=== PATIENT | female | born 1955 | race Caucasian/White ===

== ENCOUNTER 2018-07-15 05:28 | Observation (INO) | payer OTHER ==
[2018-07-15] MEDS ORDERED: HYOSCYAMINE SULFATE 0.125 MG TAB PO ONE (05:51)
[2018-07-15] MEDS ORDERED: MAG HYDROX/AL HYDROX/SIMETH 30 ML UDCUP PO ONE (05:51)
[2018-07-15] MEDS ORDERED: LIDOCAINE 2% VISCOUS 15 ML UDCUP PO ONE (05:51)
[2018-07-15] MEDS ORDERED: ONDANSETRON 4 MG/2 ML VIAL ONE ×2 (06:00→11:47)
[2018-07-15] MEDS ORDERED: ONDANSETRON 4 MG/2 ML VIAL IVP ONE (06:00)
[2018-07-15 06:01] LABS: PLATELET COUNT 258 10^3/uL (150-400)
--- NOTE | 2018-07-15 06:26 | EDPHY ---
H & P Stated Complaint: Chest pain since last night, unrelieved by zantac Source: Patient Exam Limitations: No limitations - Personal History Current Tetanus Diphtheria and Acellular Pertussis (TDAP): Yes - Medical/Surgical History Hx Asthma: No Hx Chronic Respiratory Disease: No Hx Diabetes: No Hx Cardiac Disease: No Hx Renal Disease: No Hx Cirrhosis: No Hx Alcoholism: No Hx HIV/AIDS: No Hx Splenectomy or Spleen Trauma: No Other PMH: Hypothyroid, - Social History Smoking Status: Never smoked Time Seen by Provider: 07/15/18 05:51 HPI/ROS: HPI The patient presents with chest pain which began at about 8:00 p.m. Last night and has been constant ever since. The patient describes an epigastric pressure sensation which does not radiate and is associated with nausea and vomiting. She is visiting here from [place]. Earlier in the day she had developed several episodes of watery diarrhea. She had an episode at night after drinking some wine. She was able to drink some [place] water, however her pain continued and has been present ever since. She took an extra dose of her Zantac which she usually takes twice a day for GERD. She has 1 similar previous episode about 1 year ago at [facility]. REVIEW OF SYSTEMS 10 systems were reviewed and negative with the exception of the elements mentioned in the history of present illness. PMHx: History of GERD, no prior cardiac history Soc Hx: Nonsmoker FHx: No early CAD in parents PHYSICAL General Appearance: Alert, no distress Eyes: Pupils equal and round no pallor or injection ENT, Mouth: Mucous membranes moist Respiratory: There are no retractions, lungs are clear to auscultation Cardiovascular: Regular rate and rhythm Gastrointestinal: Abdomen is soft and tender in the epigastrium, no masses, bowel sounds normal Neurological: A&O, moves all extremities Skin: Warm and dry, no rashes Musculoskeletal: Neck is supple non tender Extremities: symmetrical, full range of motion Psychiatric: Patient is oriented X 3, there is no agitation (RiguzziJessica) Constitutional: Initial Vital Signs Temperature (C) 36.8 C 07/15/18 05:34 Heart Rate 71 07/15/18 05:34 Respiratory Rate 16 07/15/18 05:34 Blood Pressure 159/84 H 07/15/18 05:34 O2 Sat (%) 97 07/15/18 05:34 O2 Delivery Mode Room Air Allergies/Adverse Reactions: No Known Allergies Allergy (Verified 07/15/18 09:01) Home Medications: Medication Instructions Recorded Acetaminophen [Tylenol 325mg (*)] 325 mg PO DAILY PRN 07/15/18 Azithromycin [Azasite] 1 drop LEFTEYE HS 07/15/18 Glucosamine/Chondroitin 2 each PO DAILY 07/15/18 [Glucosamine/Chondroitin (*)] Levothyroxine [Synthroid 100 mcg 100 mcg PO MO@07/15/18 (*)] Levothyroxine [Synthroid 50 mcg 50 mcg PO SUTUWETHFRSA@07/15/18 (*)] Multivitamins [Multivitamin (*)] 1 each PO DAILY 07/15/18 Ranitidine HCl [Zantac] 150 mg PO BID 07/15/18 Medical Decision Making - Diagnostics Imaging: I viewed and interpreted images myself - Diagnostics EKG Interpretation: EKG: Complete interpretation has been separately recorded in the [employer] archive. Summary impression: T-wave inversions in V1 through V3 (Jessica Gonzalez) Imaging Results: Imaging Impressions Chest X-Ray 07/15/18 05:51 IMPRESSION: No evidence for acute cardiopulmonary abnormality. Abdomen Ultrasound 07/15/18 06:50 Impression: Cholelithiasis without evidence for cholecystitis. Distal common bile duct is mildly enlarged at the pancreatic head with no definite choledochal stone. No evidence for intrahepatic biliary ductal dilatation. Results called and discussed with Dr. Emma Marinelli on 07/15/2018 at 0815 hours. Chest x-ray single view is unremarkable, interpreted by me, radiology interpretation is pending. (Jessica Gonzalez) ED Course/Re-evaluation: 7:00 a.m.-I assumed care of this patient at shift change. She presents with epigastric pain and elevated LFTs. Right upper quadrant ultrasound is pending. 8:30 a.m.-ultrasound reveals multiple gallstones, without evidence of cholecystitis or common bile duct obstruction. Results discussed with the patient. She continues to have epigastric pain. Abd: soft, epigastric tenderness, no peritoneal signs. Concern for biliary duct stone, given elevated LFT's and persistent pain. Lipase normal. Dr. Gonzalez was consulted, saw the pt in the ED with plan for cholecystectomy today. (Emma Marinelil) Differential Diagnosis: 62-year-old female with known history of GERD, visiting from [place], presents with about 10 hr of pressure-like sensation in her epigastrium is associated with nausea and vomiting as well as diarrhea earlier in the day. Differential diagnosis includes GERD, ACS, gastroenteritis. Patient was given Zofran and a GI cocktail here. His troponin was 0. HEART score calculated at 3. Other labs returned and demonstrated an elevated bilirubin and transaminitis. This raises suspicion for biliary disease. I have ordered a right upper quadrant ultrasound. I have ordered additional pain medication. The case will be signed out to the oncoming provider Dr. Marinelli. (Bj Gonzalezine) - Data Points Laboratory Results: Laboratory Results 07/15/18 05:43 07/15/18 05:43 07/15/18 07/15/18 07/15/18 05:53 05:43 05:43 WBC RBC Hgb Hct MCV MCH MCHC RDW Plt Count MPV Neut % (Auto) Lymph % (Auto) [place] % (Auto) Eos % (Auto) Baso % (Auto) Nucleat RBC Rel Count Absolute Neuts (auto) Absolute Lymphs (auto) Absolute Monos (auto) Absolute Eos (auto) Absolute Basos (auto) Absolute Nucleated RBC Immature Gran % Immature Gran # Sodium Potassium Chloride Carbon Dioxide Anion Gap BUN Creatinine Estimated GFR Glucose Calcium Total Bilirubin 2.5 mg/dL H mg/dL (0.1-1.4) Conjugated Bilirubin 1.6 mg/dL H mg/dL (0.0-0.5) Unconjugated Bilirubin 0.9 mg/dL mg/dL (0.0-1.1) AST 718 IU/L H IU/L (14-46) ALT 442 IU/L H IU/L (9-52) Alkaline Phosphatase 172 IU/L H IU/L (38-126) POC Troponin I 0.00 ng/mL ng/mL (0.00-0.08) Total Protein 8.0 g/dL g/dL (6.3-8.2) Albumin 4.8 g/dL g/dL (3.5-5.0) Lipase 159 IU/L IU/L (23-300) 07/15/18 07/15/18 05:43 05:43 WBC 7.75 10^3/uL 10^3/uL (3.80-9.50) RBC 5.04 10^6/uL 10^6/uL (4.18-5.33) Hgb 15.3 g/dL g/dL (12.6-16.3) Hct 45.6 % % (38.0-47.0) MCV 90.5 fL fL (81.5-99.8) MCH 30.4 pg pg (27.9-34.1) MCHC 33.6 g/dL g/dL (32.4-36.7) RDW 13.1 % % (11.5-15.2) Plt Count 258 10^3/uL 10^3/uL (150-400) MPV 9.6 fL fL (8.7-11.7) Neut % (Auto) 73.2 % % (39.3-74.2) Lymph % (Auto) 18.7 % % (15.0-45.0) [place] % (Auto) 6.5 % % (4.5-13.0) Eos % (Auto) 1.0 % % (0.6-7.6) Baso % (Auto) 0.5 % % (0.3-1.7) Nucleat RBC Rel Count 0.0 % % (0.0-0.2) Absolute Neuts (auto) 5.67 10^3/uL 10^3/uL (1.70-6.50) Absolute Lymphs (auto) 1.45 10^3/uL 10^3/uL (1.00-3.00) Absolute Monos (auto) 0.50 10^3/uL 10^3/uL (0.30-0.80) Absolute Eos (auto) 0.08 10^3/uL 10^3/uL (0.03-0.40) Absolute Basos (auto) 0.04 10^3/uL 10^3/uL (0.02-0.10) Absolute Nucleated RBC 0.00 10^3/uL 10^3/uL (0-0.01) Immature Gran % 0.1 % % (0.0-1.1) Immature Gran # 0.01 10^3/uL 10^3/uL (0.00-0.10) Sodium 138 mEq/L mEq/L (135-145) Potassium 3.8 mEq/L mEq/L (3.5-5.2) Chloride 104 mEq/L mEq/L (97-110) Carbon Dioxide 23 mEq/l mEq/l (22-31) Anion Gap 11 mEq/L mEq/L (6-14) BUN 14 mg/dL mg/dL (7-23) Creatinine 0.8 mg/dL mg/dL (0.6-1.0) Estimated GFR > 60 Glucose 129 mg/dL H mg/dL (70-100) Calcium 10.0 mg/dL mg/dL (8.5-10.4) Total Bilirubin Conjugated Bilirubin Unconjugated Bilirubin AST ALT Alkaline Phosphatase POC Troponin I Total Protein Albumin Lipase Medications Given: Discontinued Medications Al Hydroxide/Mg Hydroxide (Maalox Susp) 30 ml PO ONCE ONE Stop: 07/15/18 05:52 Last Admin: 07/15/18 05:55 Dose: 30 ml Famotidine (Pepcid) 20 mg IVP EDNOW ONE Stop: 07/15/18 06:57 Last Admin: 07/15/18 07:00 Dose: 20 mg Hyoscyamine Sulfate (Levsin, Hyomax-Sl) 0.25 mg PO ONCE ONE Stop: 07/15/18 05:52 Last Admin: 07/15/18 05:56 Dose: 0.25 mg Sodium Chloride (Ns) 1,000 mls @ 0 mls/hr IV EDNOW ONE; Wide Open PRN Reason: Protocol Stop: 07/15/18 06:57 Last Admin: 07/15/18 07:00 Dose: 1,000 mls Lidocaine (Lidocaine 2% Viscous) 15 ml PO ONCE ONE Stop: 07/15/18 05:52 Last Admin: 07/15/18 05:55 Dose: 15 ml Morphine Sulfate (Morphine) 4 mg IVP EDNOW ONE Stop: 07/15/18 08:44 Last Admin: 07/15/18 09:27 Dose: 4 mg Ondansetron HCl (Zofran) 4 mg IVP EDNOW ONE Stop: 07/15/18 06:01 Last Admin: 07/15/18 06:01 Dose: 4 mg Point of Care Test Results: Chemistry 07/15/18 05:53 POC Troponin I 0.00 ng/mL ng/mL (0.00-0.08) Departure - Departure Disposition: [facility] Acute Clinical Impression: Biliary colic Cholelithiasis Qualifiers: Cholelithiasis location: gallbladder Cholecystitis presence: without cholecystitis Biliary obstruction: without biliary obstruction Qualified Code(s) : K80.20 - Calculus of gallbladder without cholecystitis without obstruction Condition: Fair
[2018-07-15] MEDS ORDERED: FAMOTIDINE 20 MG/2 ML SDV IVP ONE (06:56)
[2018-07-15] MEDS ORDERED: NS 1,000 ML IV ONE (06:56)
--- NOTE | 2018-07-15 09:28 | PDGENHP ---
History and Physical - Chief Complaint Epigastric pain - History of Present Illness 62-year-old female in town from [place] presents with acute onset epigastric pain. Patient states that she started feeling unwell yesterday and had a bout of diarrhea. She subsequently went on with her day and began to have increasing epigastric pain last night. She has a history of GERD and subsequently took multiple is intact with no relief. The pain progressed which prompted her presentation here. She endorses nausea and vomiting. She currently endorses a bandlike pain around her epigastrium right greater than left. No fevers or chills. She did have an episode similar to this a few years ago which resolved with time. She has never been worked up for any biliary problems in the past. History Information - Allergies/Home Medication List Allergies/Adverse Reactions: No Known Allergies Allergy (Verified 07/15/18 09:01) Home Medications: Acetaminophen [Tylenol 325mg (*)] 325 mg PO DAILY PRN 07/15/18 [Last Taken Unknown] Azithromycin [Azasite] 1 drop LEFTEYE HS 07/15/18 [Last Taken 07/11/18] Glucosamine/Chondroitin [Glucosamine/Chondroitin (*)] 2 each PO DAILY 07/15/18 [ Last Taken Unknown] Levothyroxine [Synthroid 100 mcg (*)] 100 mcg PO MO@07/15/18 [Last Taken ] Levothyroxine [Synthroid 50 mcg (*)] 50 mcg PO SUTUWETHFRSA@07/15/18 [Last Taken 07/14/18] Multivitamins [Multivitamin (*)] 1 each PO DAILY 07/15/18 [Last Taken Unknown] Ranitidine HCl [Zantac] 150 mg PO BID 07/15/18 [Last Taken 07/14/18 21:00] I have personally reviewed and updated: family history, medical history, social history, surgical history Past Medical History: Hypothyroid, GERD - Surgical History Additional surgical history: Exploratory laparoscopy many years ago for fertility workup - Family History Positive for: non-pertinent - Social History Smoking Status: Never smoked Additional social history: In town from [place], denies illicit drug use Review of Systems Review of Systems: ROS: 10pt was reviewed & negative except for what was stated in HPI & below Physical Exam Physical Exam: Temp Pulse Resp BP Pulse Ox 36.8 C 62 15 160/84 H 97 07/15/18 05:34 07/15/18 08:41 07/15/18 08:41 07/15/18 08:41 07/15/18 08:41 Constitutional: no apparent distress, appears nourished, not in pain Eyes: PERRL, anicteric sclera, EOMI Ears, Nose, Mouth, Throat: moist mucous membranes, hearing normal, ears appear normal, no oral mucosal ulcers Cardiovascular: regular rate and rhythym, no murmur, rub, or gallop, No edema Respiratory: no respiratory distress, no rales or rhonchi, clear to auscultation Gastrointestinal: normoactive bowel sounds, other (TTP in epigastrium and RUQ with positive [place]) Genitourinary: no bladder fullness, no bladder tenderness Skin: warm, normal color, no rashes or abrasions, no fluctuance, no induration, No mottled Musculoskeletal: full muscle strength, no muscle tenderness, normal joint ROM, no joint effusions Psychiatric: interacting appropriately, not anxious, not encephalopathic, thought process linear Lymph, Heme, Immunologic: no cervical LAD, no supraclavicular LAD Lab Data & Imaging Review 07/15/18 05:43 07/15/18 05:43 WBC 7.75 10^3/uL (3.80-9.50) 07/15/18 05:43 RBC 5.04 10^6/uL (4.18-5.33) 07/15/18 05:43 Hgb 15.3 g/dL (12.6-16.3) 07/15/18 05:43 Hct 45.6 % (38.0-47.0) 07/15/18 05:43 MCV 90.5 fL (81.5-99.8) 07/15/18 05:43 MCH 30.4 pg (27.9-34.1) 07/15/18 05:43 MCHC 33.6 g/dL (32.4-36.7) 07/15/18 05:43 RDW 13.1 % (11.5-15.2) 07/15/18 05:43 Plt Count 258 10^3/uL (150-400) 07/15/18 05:43 MPV 9.6 fL (8.7-11.7) 07/15/18 05:43 Neut % (Auto) 73.2 % (39.3-74.2) 07/15/18 05:43 Lymph % (Auto) 18.7 % (15.0-45.0) 07/15/18 05:43 [place] % (Auto) 6.5 % (4.5-13.0) 07/15/18 05:43 Eos % (Auto) 1.0 % (0.6-7.6) 07/15/18 05:43 Baso % (Auto) 0.5 % (0.3-1.7) 07/15/18 05:43 Nucleat RBC Rel Count 0.0 % (0.0-0.2) 07/15/18 05:43 Absolute Neuts (auto) 5.67 10^3/uL (1.70-6.50) 07/15/18 05:43 Absolute Lymphs (auto) 1.45 10^3/uL (1.00-3.00) 07/15/18 05:43 Absolute Monos (auto) 0.50 10^3/uL (0.30-0.80) 07/15/18 05:43 Absolute Eos (auto) 0.08 10^3/uL (0.03-0.40) 07/15/18 05:43 Absolute Basos (auto) 0.04 10^3/uL (0.02-0.10) 07/15/18 05:43 Absolute Nucleated RBC 0.00 10^3/uL (0-0.01) 07/15/18 05:43 Immature Gran % 0.1 % (0.0-1.1) 07/15/18 05:43 Immature Gran # 0.01 10^3/uL (0.00-0.10) 07/15/18 05:43 Sodium 138 mEq/L (135-145) 07/15/18 05:43 Potassium 3.8 mEq/L (3.5-5.2) 07/15/18 05:43 Chloride 104 mEq/L (97-110) 07/15/18 05:43 Carbon Dioxide 23 mEq/l (22-31) 07/15/18 05:43 Anion Gap 11 mEq/L (6-14) 07/15/18 05:43 BUN 14 mg/dL (7-23) 07/15/18 05:43 Creatinine 0.8 mg/dL (0.6-1.0) 07/15/18 05:43 Estimated GFR > 60 07/15/18 05:43 Glucose 129 mg/dL (70-100) H 07/15/18 05:43 Calcium 10.0 mg/dL (8.5-10.4) 07/15/18 05:43 Total Bilirubin 2.5 mg/dL (0.1-1.4) H 07/15/18 05:43 Conjugated Bilirubin 1.6 mg/dL (0.0-0.5) H 07/15/18 05:43 Unconjugated Bilirubin 0.9 mg/dL (0.0-1.1) 07/15/18 05:43 AST 718 IU/L (14-46) H 07/15/18 05:43 ALT 442 IU/L (9-52) H 07/15/18 05:43 Alkaline Phosphatase 172 IU/L (38-126) H 07/15/18 05:43 POC Troponin I 0.00 ng/mL (0.00-0.08) 07/15/18 05:53 Total Protein 8.0 g/dL (6.3-8.2) 07/15/18 05:43 Albumin 4.8 g/dL (3.5-5.0) 07/15/18 05:43 Lipase 159 IU/L (23-300) 07/15/18 05:43 Visualized and Interpreted imaging results: Yes Interpretation: Ultrasound: Stones, normal gallbladder wall, question of whether not she has distal enlargement of the common bile duct Assessment & Plan Assessment: Biliary colic (Acute) Plan: 62-year-old female with acute cholecystitis clinically, question choledocholithiasis Patient is a fairly classic presentation cholecystitis, my recommendation was taken to the operating room for laparoscopic cholecystectomy. In addition, will plan to perform a cholangiogram given her liver function enzyme elevation and ductal dilatation. Risks benefits and alternatives were discussed
[2018-07-15] MEDS ORDERED: IOTHALAMATE MEG (CONRAY) 50 ML VIAL IV ONE (10:05)
--- NOTE | 2018-07-15 10:06 | PDANEPAE ---
ANE History of Present Illness cholecystitis, here for lap sofy ANE Past Medical History - Cardiovascular History Hx Hypertension: No Hx Arrhythmias: No Hx Chest Pain: No Hx Coronary Artery / Peripheral Vascular Disease: No Hx CHF / Valvular Disease: No Hx Palpitations: No - Pulmonary History Hx COPD: No Hx Asthma/Reactive Airway Disease: No Hx Recent Upper Respiratory Infection: No Hx Oxygen in Use at Home: No - Endocrine History Hx Diabetes: No Hypothyroid: Yes Hyperthyroid: No Obesity: moderate Endocrine History Comment: on synthroid - Renal History Hx Renal Disorders: No - Liver History Hx Hepatic Disorders: No - Neurological & Psychiatric Hx Hx Neurological and Psychiatric Disorders: Yes Neurological / Psychiatric History Comment: had a sister in law that was negatively impacted by an anesthesiologist and has never forgotten the experience, hence anxiety toward anesthesia - Cancer History Hx Cancer: No - GI History GERD: no Hx Gastrointestinal Disorders: Yes Gastrointestinal History Comment: acute cholecystitis ANE Review of Systems Review of Systems: ANE Patient History - Allergies Allergies/Adverse Reactions: No Known Allergies Allergy (Verified 07/15/18 09:01) - Home Medications Home Medications: Acetaminophen [Tylenol 325mg (*)] 325 mg PO DAILY PRN 07/15/18 [Last Taken Unknown] Azithromycin [Azasite] 1 drop LEFTEYE HS 07/15/18 [Last Taken 07/11/18] Glucosamine/Chondroitin [Glucosamine/Chondroitin (*)] 2 each PO DAILY 07/15/18 [ Last Taken Unknown] Levothyroxine [Synthroid 100 mcg (*)] 100 mcg PO MO@06 07/15/18 [Last Taken ] Levothyroxine [Synthroid 50 mcg (*)] 50 mcg PO SUTUWETHFRSA@07/15/18 [Last Taken 07/14/18] Multivitamins [Multivitamin (*)] 1 each PO DAILY 07/15/18 [Last Taken Unknown] Ranitidine HCl [Zantac] 150 mg PO BID 07/15/18 [Last Taken 07/14/18 21:00] - Smoking Hx Smoking Status: Never smoked ANE Labs/Vital Signs - Labs Result Diagrams: 07/15/18 05:43 07/15/18 05:43 - Vital Signs Blood Pressure: 142/85 Heart Rate: 69 Respiratory Rate: 15 O2 Sat (%): 96 Height: 165.1 cm Weight: 79.379 kg ANE Physical Exam - Airway Neck exam: FROM Mallampati Score: Class 2 Mouth exam: normal dental/mouth exam - Pulmonary Pulmonary: no respiratory distress, no rales or rhonchi - Cardiovascular Cardiovascular: regular rate and rhythym, no murmur, rub, or gallop - ASA Status ASA Status: II, E ANE Anesthesia Plan Anesthesia Plan: general endotracheal anesthesia Total IV Anesthesia: No
[2018-07-15] MEDS: MIDAZOLAM 2 MG/2 ML VIAL IVP ONE ×2 (11:16→11:50)
[2018-07-15] MEDS ORDERED: LIDOCAINE 2% 100 MG/5 ML SYR ONE (11:21)
[2018-07-15] MEDS ORDERED: fentaNYL 100 MCG/2 ML INJ ONE (11:21)
[2018-07-15] MEDS ORDERED: PROPOFOL 200 MG/20 ML VIAL ONE (11:21)
[2018-07-15] MEDS ORDERED: ROCURONIUM 100 MG/10 ML VIAL ONE (11:21)
[2018-07-15] MEDS ORDERED: DEXAMETHASONE 4 MG/ML VIAL ONE (11:47)
[2018-07-15] MEDS ORDERED: SUGAMMADEX SODIUM 200 MG/2 ML VIAL IVP ONE (11:47)
[2018-07-15] MEDS ORDERED: HYDROmorphONE/DILAUDID 2 MG/ML INJ ONE (11:47)
[2018-07-15] MEDS: BUPIVACAINE/EPI 0.25% 30 ML SDV ONE ×2 (11:49→12:14)
[2018-07-15] MEDS ORDERED: MEPERIDINE 25 MG/0.5 ML AMP IVP PRN (12:14)
[2018-07-15] MEDS ORDERED: oxyCODONE IR 5 MG TAB PO PRN ×2 (12:14→12:24)
[2018-07-15] MEDS ORDERED: DIAZEPAM 5 MG/ML 1 ML SYR IVP PRN (12:14)
[2018-07-15] MEDS ORDERED: fentaNYL 100 MCG/2 ML INJ IVP PRN (12:14)
[2018-07-15] MEDS ORDERED: NALOXONE HCL 0.4 MG/ML INJ IVP PRN (12:14)
[2018-07-15] MEDS ORDERED: LR 500 ML IV PRN (12:14)
[2018-07-15] MEDS ORDERED: ACETAMINOPHEN 500 MG TAB PO PRN (12:14)
[2018-07-15] MEDS ORDERED: PROMETHAZINE HCL 25 MG/ML INJ IVP PRN (12:14)
[2018-07-15] MEDS ORDERED: HYDROmorphONE/DILAUDID 2 MG/ML INJ IVP PRN (12:14)
[2018-07-15] MEDS ORDERED: HYDROmorphONE/DILAUDID 1 MG/ML INJ IVP PRN (12:24)
[2018-07-15] MEDS ORDERED: ONDANSETRON 4 MG/2 ML VIAL IVP PRN (12:24)
[2018-07-15] MEDS ORDERED: ACETAMINOPHEN 325 MG TAB PO PRN (12:24)
--- NOTE | 2018-07-15 12:24 | POSTOPPROG ---
Post Op Note Date of Operation: 07/15/18 Surgeon: Filipe Gonzalez Anesthesiologist: Perry Anesthesia: GET(General Endotracheal) Pre-op Diagnosis: cholecystitis Post-op Diagnosis: same Procedure: Laparoscopic cholecystectomy with cholangiogram Findings: critical view, IOC: no filling defects Inf/Abcess present in the surg proc area at time of surgery?: No EBL: Minimal Specimen(s): GB
--- NOTE | 2018-07-15 12:59 | POSTANESTH ---
Post Anesthetic Evaluation Cardiovascular Status: Normal, Stable Respiratory Status: Normal, Stable Level of Consciousness/Mental Status: Can Participate in Eval, Mildly Sleepy, Arousable Pain Control: Adequate, Prn Tx Ordered Nausea/Vomiting Control: Adequate, Prn Tx Ordered Complications Possibly Related to Anesthesia: None Noted
[2018-07-15] MEDS: D5W 1/2 NS W/ 20 KCl/L 1,000 ML IV SCH (13:39)
[2018-07-15] MEDS: IBUPROFEN 600 MG TAB PO SCH ×2 (15:43→21:03)
--- NOTE | 2018-07-15 16:05 | ASMTCMCOM ---
CM Note CM Note Notes: Pt is s/p a kristina goetz. Pt is here from [place] for a conference. She has friends here that can assist getting her to the airport etc when she is medically cleared for d/c. Anticipate pt will d/c with no CM needs. D/C plan: home independent Date Signed: 07/15/2018 04:04 PM Electronically Signed By:RON Saudners
--- NOTE | 2018-07-15 17:23 | GOP ---
[f rep st] OPERATIVE REPORT DATE OF OPERATION: 07/15/2018 SURGEON: Filipe Gonzalez MD WEBSITE DESIGNER: None. ANESTHESIA: General endotracheal. ANESTHESIOLOGIST: Dr. Nina Amador. PREOPERATIVE DIAGNOSIS: Acute cholecystitis. POSTOPERATIVE DIAGNOSIS: Acute cholecystitis. PROCEDURE PERFORMED: Laparoscopic cholecystectomy with intraoperative cholangiogram. FINDINGS: Edematous gallbladder wall. Critical view obtained. Cholangiogram showed brisk filling o f all biliary radicles with good spill into the duodenum. SPECIMENS: Gallbladder. ESTIMATED BLOOD LOSS: 5 cc. DESCRIPTION OF PROCEDURE: The patient was greeted in the preoperative suite, and once again, risks, benefits, and alternatives were discussed, and consent was signed. She was then brought back to the operative suite, placed on the OR table in supine position. After all anesthesia machines, including SCDs were on and functioning, a world [employer] time-out was performed. After successful induction of general anesthesia, the patient's abdomen was prepped and draped in typical sterile fash ion. I commenced the procedure by making an infraumbilical cutdown through which the Veress needle was pas sed. I achieved pneumoperitoneum to 15 mmHg, which was well tolerated by the patient. Once successf ully insufflated, I placed a 12 mm Visiport through this area. Once successfully in the abdomen, I p laced 3 additional 5 mm trocars, 1 subxiphoid, 2 in the right upper quadrant, all under direct visual ization. I identified the gallbladder, and it had some omental adhesions, which were taken down norma ply. It was retracted over the edge of the liver by dissecting at the infundibulum using both electr ocautery and blunt dissection. I identified 2 and only 2 structures leading toward the gallbladder. Using the Colon clamp, I successfully performed a cholangiogram, which showed brisk filling of all t he biliary radicles with good spillage into the duodenum and no filling defects. Colon clamp was the n removed. I clipped both the cystic duct and artery, 2 on the stay side, 1 on the specimen side, an d successfully divided them sharply. The gallbladder was taken off the liver bed with electrocautery . It was placed in an EndoCatch bag and removed. The right upper quadrant was then irrigated with a L of sterile saline noting clear effluent in the suction canister. Javier was used to assist with h emostasis in the liver bed, which was noted to be good. Local anesthesia was infiltrated into all port sites, which were then removed under direct visualizat ion. Pneumoperitoneum was evacuated. I closed the infraumbilical site with a 0 Vicryl stitch noting excellent fascial reapproximation. Skin was then closed with Monocryl. Dermabond was placed. The patient was then extubated in the operative suite and taken to PACU in satisfactory condition. DRAINS: None. COUNTS: All counts were reported as correct x2. /[id number]/MODL
[2018-07-15] MEDS ORDERED: AZITHROMYCIN LEFTEYE SCH (21:00)
[2018-07-15] MEDS: FAMOTIDINE 20 MG TAB PO SCH (21:03)
[2018-07-16] MEDS: D5W 1/2 NS W/ 20 KCl/L 1,000 ML IV SCH (01:16)
[2018-07-16] MEDS: IBUPROFEN 600 MG TAB PO SCH ×2 (05:25→14:32)
[2018-07-16] MEDS ORDERED: LEVOTHYROXINE 50 MCG TAB PO SCH (06:00)
--- NOTE | 2018-07-16 08:37 | PDDCSUM ---
Discharge Summary Discharge Summary: DISCHARGE SUMMARY Date of Admission July 15 Date of Discharge July 16 DISCHARGE DIAGNOSES -acute cholecystitis HOSPITAL COURSE The patient was admitted from the ED and taken to the operating room where they underwent an uneventful laparoscopic cholecystectomy with intraoperative cholangiogram. They were subsequently taken to the PACU and then the general medical floor. The hospital course was uneventful, their diet was advanced to a regular diet which was well tolerated and their pain was well controlled. They were discharged home in stable condition on the afternoon of the DISCHARGE MEDICATIONS Oxycodone as needed for pain DISPOSITION Home FOLLOW UP Follow up with me in the office in 10-14 days for a general post-operative visit , or with your PCP if you are out of town
[2018-07-16] MEDS: FAMOTIDINE 20 MG TAB PO SCH (08:53)
[2018-07-16] MEDS ORDERED: GLUCOSAMINE/CHONDROITIN CAP PO SCH (09:00)
[2018-07-16] MEDS ORDERED: MULTIVITAMINS 1 EACH TAB PO SCH (09:00)
--- NOTE | 2018-07-16 09:16 | ASDISCHSUM ---
Discharge Information Plan Status:Home with No Needs Medically Cleared to Leave: Discharge Date: CM D/C Disposition:Home, Routine, Self-Care ADT D/C Disposition:Home, Routine, Self-Care Projected Discharge Date: Transportation at D/C:Friend Discharge Delay Reason: Follow-Up Date: Discharge Slot: Final Diagnosis: Placement Information Patient Contact Information Contact Name:BASSAM Relationship:Daughter Address: Home Phone: City: Alternate Phone: State/[place] Code: Email: Financial Information Financial Class:HMO and PPO Plans Primary Plan Desc:[place] Primary Plan Number:[id number] Secondary Plan Desc: Secondary Plan Number: Assessment Information BC CM Progress Note CM Note CM Note Notes: Pt is s/p dane goetz. Pt is here from [place] for a conference. She has friends here that can assist getting her to the airport etc when she is medically cleared for d/c. Anticipate pt will d/c with no CM needs. D/C plan: home independent Date Signed: 07/15/2018 04:04 PM Electronically Signed By:RON Saunders LACE LACE Length of stay for Answers: 1 day current admission Acuity / Level of Answers: No Care: Did the patient have an inpatient admission? # of Emergency department Answers: 1-2 visits in the last 6 months Score: 2 Date Signed: 07/16/2018 09:15 AM Electronically Signed By:Heide Fragoso Intervention Information
[2018-07-16 15:31] VITALS: BP 129/79
[2018-07-18] MEDS ORDERED: LEVOTHYROXINE 100 MCG TAB PO SCH (06:00)
== END 2018-07-16 17:50 | disposition home or self-care (01) ==
LOC: F3N 13:27
PROVIDERS: ADMIT Surgery; ATTEND Surgery
PROC: 0FT44ZZ Resection of Gallbladder, Percutaneous Endoscopic Approach (ICD-10-PCS; principal; 2018-07-15 11:00)
DX: K80.00 Calculus of gallbladder with acute cholecystitis without obstruction (principal); E86.0 Dehydration; K21.9 Gastro-esophageal reflux disease without esophagitis
CPT/HCPCS: 47563; 71045; 76000; 76700; 96361; 96374; 96375; 96376; 99285; G0378; 84484-ER; J1100; J1170; J2001; J2270; J2405; J2704; J3010; Q9961